=== PATIENT | female | born 1940 | race Caucasian/White ===

== ENCOUNTER 2020-12-25 22:12 | Inpatient (IN) | payer MEDICARE, MEDICAID, SELFPAY ==
[2020-12-25 22:22] VITALS: PULSE 81
[2020-12-25 22:32] VITALS: BP 136/79; PULSE 90; RESP 17; TEMP 36.6; O2SAT 92
[2020-12-25 22:39] LABS: Glucose Point of Care 173 mg/dL (70-110)
--- NOTE | 2020-12-25 23:21 | P.HP_ITS ---
Providers/Chief Complaint Admitting Physician: Thomas Robertson MD Chief Complaint: HYPOTENSION, AMS, UNWITNESSED FALL History of Present Illness Cathy Martinez is a 80 year old female who is a resident of [facility] has history of congestive heart failure atrial flutter takes Eliquis, presented to [facility] for chief complaint of recent fall and facial droop. She was sent to the hospital because she sustained a fall at the halfway today, facial droop was noticed and she was confused. She does carry history of Alzheimer's dementia. From [facility] she was transferred to our facility for chief complaint of hypotension however her blood pressure improved after 1 L normal saline that was given in the ER. Her NIH was 0 her symptoms resolved. Work-up at the other facility revealed normal CBC, BMP revealed hypokalemia high CRP and pro calcitonin otherwise normal digoxin level, troponin normal, D-dimer normal, EKG showing atrial flutter without ischemic or infarctive changes, chest x-ray revealed mild pulmonary vascular ingestion BMP 2400, she was given Zosyn and 1 L normal saline and transferred to our facility because of hypotension. By the time she arrived at [facility], she was awake, alert oriented to herself, nobody provide any history, I called halfway to get the report, the night nurse is able to tell me that today she was walking on the [place] when all of a sudden she fell on the ground she is not sure whether she lost consciousness, at that time her blood pressure was normal, she was confused more than her baseline, facial droop was noticed for concern of stroke she was sent to [facility]. Her current blood pressure systolic 97 mmHg. Review of records revealed coronavirus strain OC43. Review of Systems Const: Denies: fever(s) Eyes: Denies: change in vision ENMT: Denies: throat pain Card: Denies: chest pain Resp: Denies: dyspnea GI: Denies: abdominal pain : Denies: flank pain Musc: Denies: neck pain Skin/Breast: Denies: rash Neuro: Denies: headache(s) Psych: Denies: anxiety Endo: Denies: polyuria Abhi/Lymph: Denies: easy bruising All/Imm: Denies: urticaria Medications/Allergies Home Medications Medication Instructions Recorded Confirmed Last Taken Type acetaminophen [Tylenol] 650 mg PO Q4H PRN 12/25/20 12/25/20 Unknown History albuterol sulfate INHALATION Q4H PRN 12/25/20 Unknown History alum-mag hydroxide-simeth [Mylanta] 30 ml PO Q2H PRN 12/25/20 12/25/20 Unknown History apixaban [Eliquis] 5 mg PO BID 12/25/20 12/25/20 Unknown History aspirin 81 mg PO BID 12/25/20 12/25/20 Unknown History atorvastatin 40 mg PO BEDTIME 12/25/20 12/25/20 Unknown History bisacodyl 10 mg AR DIRECTED PRN 12/25/20 12/25/20 Unknown History bisacodyl [Ducodyl (bisacodyl)] 20 mg PO DIRECTED PRN 12/25/20 12/25/20 Unknown History camphor-menthol [Biofreeze] 1 applic TOPICAL BID PRN 12/25/20 12/25/20 Unknown History citalopram [Celexa] 10 mg PO DAILY 12/25/20 12/25/20 Unknown History digoxin 125 mcg PO DAILY 12/25/20 12/25/20 Unknown History doxycycline hyclate 100 mg PO BID 12/25/20 12/25/20 Unknown History ergocalciferol (vitamin D2) 1,250 mcg PO DIRECTED 12/25/20 12/25/20 Unknown History [Vitamin D2] furosemide 40 mg PO BID 12/25/20 12/25/20 Unknown History insulin aspart U-100 [Novolog See Rx Instructions .ROUTE .COMPLEX 12/25/20 12/25/20 Unknown History U-100 Insulin aspart] insulin detemir U-100 [Levemir 8 unit SUBCUT BEDTIME 12/25/20 12/25/20 Unknown History U-100 Insulin] insulin detemir U-100 [Levemir 14 unit SUBCUT QAM 12/25/20 12/25/20 Unknown History U-100 Insulin] loperamide [Imodium] 2 mg PO DIRECTED PRN 12/25/20 12/25/20 Unknown History lorazepam 0.5 mg PO BID 12/25/20 12/25/20 Unknown History losartan [Cozaar] 25 mg PO DAILY 12/25/20 12/25/20 Unknown History magnesium citrate 150 ml PO DIRECTED PRN 12/25/20 12/25/20 Unknown History magnesium hydroxide [Milk of 30 ml PO DIRECTED PRN 12/25/20 12/25/20 Unknown History Magnesia] metoprolol succinate 100 mg PO DAILY 12/25/20 12/25/20 Unknown History multivitamin with minerals 1 tab PO DAILY 12/25/20 12/25/20 Unknown History omega-3 fatty acids [Berkley 3 Fish 1,000 mg PO DAILY 12/25/20 12/25/20 Unknown History Oil Concentrate] sennosides-docusate sodium 2 tab-cap PO BID 12/25/20 12/25/20 Unknown History [Senna-S] sitagliptin [Januvia] 25 mg PO DAILY 12/25/20 12/25/20 Unknown History spironolactone 25 mg PO DAILY 12/25/20 12/25/20 Unknown History Allergies Allergy/AdvReac Type Severity Reaction Status Date / Time Sulfa (Sulfonamide Allergy Unknown Unknown Verified 12/25/20 22:30 Antibiotics) PFSH Acute PFSH: Medical History Acute depression Alzheimer's dementia Atrial flutter CHF (congestive heart failure) COVID-19 SAW (generalized anxiety disorder) HTN (hypertension) Hyperglycemia Surgical History History of appendectomy Family History Other Family history non-contributory Social History Smoking and tobacco status: never smoked Alcohol intake: never Housing: [facility] Vitals/I&O/Wt Last Vital Signs Temp 98 F 12/25/20 22:32 Pulse 90 12/25/20 22:32 Resp 17 12/25/20 22:32 BP 136/79 12/25/20 22:32 Pulse Ox 92 12/25/20 22:32 Weight last 48 hrs Weight 77.02 kg Weight 77.383 kg Physical Exam Narrative: EXAM NARRATIVE: elderly female, pleasant and cooperative during my evaluation however she is only oriented to herself S1, S2 variable, no clinical signs of fluid overload She is laying supine without any shortness of breath saturating well on room air mild crackles left greater than right otherwise no acute respiratory distress stridor or wheezing Abdomen soft nontender bowel sound present Lower extremity no edema gangrene or ulcer Oriented to herself NIH 0 No focal deficit No joint swelling or cellulitis Gait was not tested Clinically looks dry dry mucous membranes, cracked lips A&P Assessment and plan (1) TIA (transient ischemic attack): Status: Acute (2) Hypotension: Status: Acute (3) Hypokalemia: Status: Acute (4) Weakness: Status: Acute Additional A&P Information TIA Symptoms resolved, facial droop was noticed at the halfway CT head unremarkable done at [facility] NIH 0 during my evaluation Check orthostatics however she received 1 L normal saline at [facility] Systolic blood pressure is 97 mmHg Considering use of aspirin and Eliquis I would not add Plavix at this point which will put her at risk of bleeding D-dimer unremarkable, I do believe her symptoms are related to hypotension related to polypharmacy Check echo in the morning, not sure whether her fall was orthostatic versus syncopal event Hypotension High BNP 2400 chest x-ray shows mild vascular congestion, review of records revealed coronavirus strain OC 43 which is the most common cause of common cold, it is not malignant strain, I would keep her on a azithromycin for now, she received Zosyn at the facility, High CRP and procalcitonin detect Keep her in isolation for now I do believe her hypotension is related to polypharmacy she takes Lasix twice a day, losartan, metoprolol succinate 100 mg, I will reduce her dosage to 50 mg a day, spironolactone, Clinically she looks dehydrated with dry mucous membranes and cracked lips we will give her 250 cc bolus systolic blood pressure 97 mmhg Hypokalemia: I will replete her potassium potassium 3.3, check magnesium level PT evaluation in the morning Cardiac diet DVT prophylaxis not indicated due to Eliquis use Full code Attestations Medical Necessity Statement*: Anticipating discharge within 48 hours will need overnight monitoring because of hypotension and recent fall/TIA Time Spent in Patient Care: 30mins Coding Level of Care Code Acute Strategic Planning Analyst for Chg Fwd Diagnoses TIA (transient ischemic attack) G45.9 Hypotension I95.9 Hypokalemia E87.6 Weakness R53.1
[2020-12-25 23:22] VITALS: BP 102/62; BP 112/66; BP 98/71; PULSE 88; PULSE 93
[2020-12-25 23:43] LABS: Glucose Point of Care 153 mg/dL (70-110)
[2020-12-26] VITALS (8 sets, daily range): BP systolic 101–158; BP diastolic 69–80; PULSE 70–96; RESP 16–28; TEMP 36.4–37.9; O2SAT 94–95
--- NOTE | 2020-12-26 00:21 | USR_ITS ---
Arterial ultrasound of the extracerebral carotid and vertebral arteries Clinical indication: TIA Technique: Real-time ultrasound with shafer scale, duplex Doppler, and color flow imaging was performed to evaluate the extracerebral carotid and vertebral arteries. No prior vascular imaging studies are available for correlation at the time of dictation. Findings: Prominent mixed echogenic plaque formation is identified in the carotid arteries bilaterally, along with intimal thickening . There is normal antegrade flow within the vertebral arteries bilaterally. Absence of flow is identified in the visualized right internal carotid artery, consistent with occlusion. MRA can be performed for confirmation, if clinically indicated. The peak systolic velocity in the left internal carotid artery is 97 cm per second. US/CV carotid duplex BI* [id number] Impression: 1. Prominent mixed echogenic plaque formation within the carotid arteries bilaterally, with occlusion of the right internal carotid artery. 2. Normal antegradew flow within the vertebral arteries. The aforementioned findings initiated a critical results communication pathway. An addendum will be issued at the time of clincian notification.
[2020-12-26] MEDS: sodium chloride 0.9% 250 ML IV (01:22)
[2020-12-26] MEDS: potassium chloride ER 20 mEq Tablet 40 MEQ PO (01:24)
--- NOTE | 2020-12-26 05:35 | PC.NURSE ---
05 Attempted to verify last dose of medications, but no answer at [facility] and patient unable to verify medications
--- NOTE | 2020-12-26 05:38 | PC.NURSE ---
0200 Received patient with Gil Catheter. No order to maintain keep Gil, Doyle verified to remove existing Gil. Balloon deflated of 10cc and catheter removed without incidence. Patient tolerated well.
[2020-12-26 06:13] LABS: Basophils # 0.1 10^3/uL (0.0-0.1); Basophils % 1.4 %; Eosinophils % 0.2 %; Hematocrit 39.6 % (37.0-47.0); Hemoglobin 12.8 g/dL (11.5-15.3); Lymphocytes % 35.5 %; Mean Corpuscular HGB Conc 32.3 g/dL (30.0-36.0); Mean Corpuscular Hemoglobin 26.4 pg (28.0-34.0); Mean Corpuscular Volume 81.6 fL (81-99); Mean Platelet Volume 11.4 fL (7.4-10.4); Monocytes # 0.9 10^3/uL (0.2-0.9); Monocytes % 10.5 %; Neutrophils # 4.27 10^3/uL (1.8-7.7); Neutrophils % 50.5 %; Nucleated Red Blood Cells % 0 %; Platelet Count 385 10^3/cmm (130-400); Red Blood Count 4.85 10^6/uL (4.1-5.3); Red Cell Distribution Width 15.1 % (12.1-15.1); White Blood Count 8.5 10^3/uL (4.0-10.0)
[2020-12-26 06:34] LABS: Anion Gap 11.1 (5-19); Blood Urea Nitrogen 12 mg/dL (8-23); Calcium 7.9 mg/dL (8.5-10.5); Carbon Dioxide 22 mmol/L (22-29); Chloride 99 mmol/L (98-107); Glucose 126 mg/dL (65-115); Magnesium 1.8 mg/dL (1.7-2.3); Osmolality Calculated 269 mOsm/kg (285-295); Potassium 3.1 mmol/L (3.5-5.1); Sodium 129 mmol/L (136-145)
[2020-12-26 06:36] LABS: Digoxin 0.8 ng/mL (0.6-1.2); Thyroid Stimulating Hormone 1.84 uIU/mL (0.27-4.20)
[2020-12-26 07:19] LABS: Glucose Point of Care 142 mg/dL (70-110)
[2020-12-26 07:31] LABS: Estmated Average Glucose 160; Hemoglobin A1C 7.2 % (4.0-6.0)
[2020-12-26] MEDS: sennosides-docusate Tablet 2 TAB PO ×2 (08:06→17:00)
[2020-12-26] MEDS: aspirin 81 mg EC Tablet PO (08:06)
[2020-12-26] MEDS: apixaban 5 mg Tablet PO ×2 (08:06→17:00)
[2020-12-26] MEDS: azithromycin 250 mg Tablet 500 MG PO (08:06)
[2020-12-26] MEDS: metoprolol succinate ER (24 HR) 100 mg Tablet 50 MG PO (08:06)
[2020-12-26] MEDS: spironolactone 25 mg Tablet PO (08:07)
[2020-12-26] MEDS: cefTRIAXone 1,000 MG in sodium chloride 0.9% (plus) 50 ML 100 MG IV (10:15)
[2020-12-26 11:21] LABS: Glucose Point of Care 117 mg/dL (70-110)
--- NOTE | 2020-12-26 11:44 | CTR_ITS ---
PROCEDURE INFORMATION: Exam: CT Angiography Head With Contrast, Arteriography Exam date and time: 12/26/2020 11:45 AM Age: 80 years old Clinical indication: Abnormal findings; Abnormal carotid US; Patient HX: Erika occlusion noted on carotid ultrasound. ; Additional info: Right internal carotid occlusion TECHNIQUE: Imaging protocol: Computed tomography angiography of the head with contrast. Exam focused on the arteries. 3D rendering (Not supervised by radiologist): MIP and/or 3D reconstructed images were created by the technologist. Radiation optimization: All CT scans at this facility use at least one of these dose optimization techniques: automated exposure control; mA and/or kV adjustment per patient size (includes targeted exams where dose is matched to clinical indication); or iterative reconstruction. Contrast material: OMNI 350; Contrast volume: 95 ml; Contrast route: INTRAVENOUS (IV); COMPARISON: 1. CT head wo con* [id number] 12/25/2020 3:59 PM 2. US CV carotid duplex BI* [id number] 12/26/2020 9:40:48 AM RADIATION DOSE METRICS: Total DLP (mGy-cm): 3396.81 FINDINGS: ANTERIOR CIRCULATION: Right internal carotid artery: Atherosclerotic calcifications are seen involving the right cavernous internal carotid artery. There is occlusion of the right internal carotid artery within the neck and carotid canal. Collateral flow is noted in the right cavernous carotid artery. Severe calcification of the cavernous carotid artery is noted. There is severe stenosis involving the right paraclinoid ICA and proximal right supraclinoid ICA. Flow is noted in the carotid terminus. Right middle cerebral artery: The right middle cerebral artery is patent but diminutive in size. 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 The remaining right anterior cerebral artery is patent. Left internal carotid artery: Atherosclerotic calcifications are seen involving the left cavernous internal carotid artery. Atherosclerotic calcifications are seen involving the left cavernous internal carotid artery. Moderate stenosis of the cavernous segment is present. There is moderate/severe stenosis of the proximal left supraclinoid ICA. Left middle cerebral artery: Unremarkable. No occlusion or significant stenosis. No aneurysm. Left anterior cerebral artery: Unremarkable. No occlusion or significant stenosis. No aneurysm. POSTERIOR CIRCULATION: Right vertebral artery: There 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 Left vertebral artery: There is severe stenosis of the distal left vertebral artery. Basilar artery: Mild multifocal stenosis of the basilar artery is present. Right posterior cerebral artery: There is moderate stenosis of the right posterior cerebral artery (P2 segment). 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 Brain: A chronic left BERRY GROWER territory infarct is present. Chronic infarcts are also noted in the inferior aspect of both inferior basal ganglia. There is no acute intracranial hemorrhage, mass effect, or midline shift. Age-related cerebral and cerebellar volume loss is present. Cerebral ventricles: No ventriculomegaly. Bones/joints: Unremarkable. No acute fracture. Soft tissues: Unremarkable. Paranasal sinuses: Right maxillary sinusitis is present. Mucosal thickening is also noted in the ethmoid and sphenoid sinuses. IMPRESSION: 1. Occluded right internal carotid artery within the neck and carotid canal. Collateral flow is present in the right cavernous carotid and supraclinoid ICA. 2. 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 Chronic findings as discussed above. PROCEDURE INFORMATION: Exam: CT Angiography Neck With Contrast Exam date and time: 12/26/2020 11:45 AM Age: 80 years old Clinical indication: Abnormal findings; Abnormal carotid US; Patient HX: Erika occlusion noted on carotid ultrasound. ; Additional info: Right internal carotid occlusion TECHNIQUE: Imaging protocol: Computed tomography angiography of the neck with contrast. 3D rendering (Not supervised by radiologist): MIP and/or 3D reconstructed images were created by the technologist. Radiation optimization: All CT scans at this facility use at least one of these dose optimization techniques: automated exposure control; mA and/or kV adjustment per patient size (includes targeted exams where dose is matched to clinical indication); or iterative reconstruction. Contrast material: OMNI 350; Contrast volume: 95 ml; Contrast route: INTRAVENOUS (IV); COMPARISON: 1. CT head wo con* [id number] 12/25/2020 3:59 PM 2. US CV carotid duplex BI* [id number] 12/26/2020 9:40:48 AM RADIATION DOSE METRICS: Total DLP (mGy-cm): 3396.81 FINDINGS: Right common carotid artery: There is mild stenosis of the mid and distal right common carotid artery. Right internal carotid artery: Atherosclerotic calcifications are present at the right carotid bifurcation and within the proximal right internal carotid artery. 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 There is a tiny accessory artery arising from the origin of the right external carotid artery which ascends in the neck, adjacent to the occluded right internal carotid artery, entering into the carotid canal. Right external carotid artery: No occlusion or stenosis of the origin. Left common carotid artery: No stenosis. No dissection or occlusion. Left internal carotid artery: Atherosclerotic calcifications are present at the left carotid bifurcation and within the proximal left internal carotid artery. Less than 25% stenosis is present. Left external carotid artery: No occlusion or stenosis of the origin. Right vertebral artery: There is mild stenosis of the proximal right vertebral artery. Moderate narrowing of the distal right vertebral artery is noted at the C1 and C2 levels. Left vertebral artery: There is moderate stenosis of the left vertebral artery origin. The remaining left vertebral artery is patent. Right subclavian artery: Incidental note is made of an aberrant right subclavian artery. Moderate stenosis of the aberrant right subclavian artery origin is noted. Aorta: Atherosclerotic calcifications are noted within the aortic arch. Lymph nodes: Numerous small non-specific mediastinal lymph nodes are noted. Soft tissues: Normal. No significant soft tissue swelling. Bones/joints: Moderate degenerative changes of the cervical spine are present. Lungs: Mild scarring is noted in the lung apices. CT/CT angio headneck* [id number] IMPRESSION: 1. Occluded right internal carotid artery 2. Chronic findings as discussed above. REFERENCES: NASCET CRITERIA. The degree of internal carotid artery stenosis is based on NASCET criteria. Normal is no stenosis. Mild is less than 50% stenosis. Moderate is 50-69% stenosis. Severe is 70% to 99% stenosis. Total occlusion is no detectable patent lumen. Radiation Dose CTDIVOL = (mGy): DLP = 3396.81~3396.81 (mGy-cm)
--- NOTE | 2020-12-26 11:45 | PC.CHAP ---
Pastoral Care Encounter/Spiritual Assessment Type of Contact [] Declined extractor tender raw stock visit [] Patient/Family/Request visit [] Outpatient visit [] Follow-up visit [] Physician referral [] Code/Alert [] Routine visit [] Staff referral [] Actively dying [] Patient sleeping [] Family support [] [] Out of room [] Palliative care [] [] Receiving care in room [] Pre-surgical visit [] Trauma [] Long length of stay [] ICU visit [] Other: Relational/Emotional Strength [] Patient feels connected with others/family/visitors/staff [] Distress [] Loneliness/isolation [] Abandonment Spirituality of Patient [x] Person of Alexia [x] Attends [employer] of their Alexia [x] Believes in Prayer [] Reads Bible or Confucianist materials [] There are Spiritual issues to be addressed Client Delivery Specialist Interventions [x] Prayer [] Active listening [] Non-anxious presence [] Spiritual/emotional support [] Crisis/trauma care [] Spiritual counseling [] Bereavement support [] Provided bereavement packet [] Provided Bible/devotional materials [] Provided toy/stuffed animal, coloring book to patient or family member [] Provided Communion [] Anointing/[place] [] Salvation [] Completed spiritual assessment [] Other: Impact on Illness or Injury [] Angry [] Fearful [] Anxious [] Often cries [] Exhaustion [] Unable to work [] Unable to attend muslim [] Unable to walk/stand [] Unable to read [] Unable to drive [] Unable to eat/drink [] Unable to sleep [] Unable to be with family [] Patient intubated [] Other: Summary Time spent with patient
--- NOTE | 2020-12-26 12:20 | PM.PN ---
Subjective Subjective: Interval history: This morning patient was examined, she is alert to person, not to place, not to time, she follows all commands, no facial droop, no slurring of her speech, no focal neurologic deficits detected, she has no complaints, she does not know why she is in the hospital, she thinks she is in [facility], I spoke to patient's custodial, and they advised me that she is quite forgetful at times, she is alert to person, not to place, not to time, she does ambulate on her own, she does eat a hard on her own, she does not have any family, is awarded guardianship of the formerly [facility], [facility]1983, she has dementia, according to custodial after breakfast yesterday she got up off the table, and after taking a few steps, she fell to the ground, she did catch a railing that hell broke a fall, no head trauma, but she did slump to the ground, when nursing staff got her up, they noticed right-sided facial droop, which resolved after 3 minutes, she was alert oriented after, following commands, Vitals/I&O/Wt Last Vital Signs Temp 98 F 12/26/20 04:00 Pulse 82 12/26/20 09:45 Resp 20 H 12/26/20 07:44 BP 144/69 12/26/20 09:45 Pulse Ox 95 12/26/20 07:44 12/25/20 12/26/20 12/26/20 22:59 06:59 14:59 Intake Total 550 / 550 290 / 290 Output Total 2200 / 2200 Balance -1650 / -1650 290 / 290 Weight last 48 hrs Weight 76.657 kg Weight 77.02 kg Weight 77.383 kg Physical Exam Const: COMMON NORMALS: no acute distress ORIENTATION/CONSCIOUSNESS: Yes awake, Yes oriented to person and Yes confused; not oriented to place and not oriented to time Resp: COMMON NORMALS: normal respiratory effort, No retractions, No use of accessory muscles and clear to auscultation bilaterally AUSCULTATION: clear to auscultation bilaterally Cardio: COMMON NORMALS: regular rate, S1 normal heart sound present and S2 normal heart sound present RATE: regular rate RHYTHM: abnormal rhythm HEART SOUNDS: S1 normal heart sound present and S2 normal heart sound present GI: COMMON NORMALS: Normal to inspection, nondistended, normoactive bowel sounds present, Soft to palpation and non-tender PALPATION: Yes Soft to palpation Extremity: COMMON NORMALS: no pedal edema Neuro: COMMON NORMALS: CN's II-XII intact bilaterally, moves all extremities and no focal motor deficits SENSORIUM/ORIENTATION: Yes oriented to person, No oriented to place and No oriented to time SPEECH: speech normal Data : 12/26/20 04:45 12/26/20 04:45 A&P Assessment and plan (1) TIA (transient ischemic attack): Status: Acute (2) Hypotension: Status: Acute (3) Hypokalemia: Status: Acute (4) Weakness: Status: Acute Additional A&P Information TIA Symptoms resolved, right facial droop facial droop was noticed at the custodial CT head unremarkable done at [facility] NIH 0 during my evaluation, NIH stroke scale 0 this morning Check orthostatics however she received 1 L normal saline at [facility] Blood pressures were soft at [facility], they are soft early in the morning, but have improved Has been compliant with all medications Carotid artery ultrasound shows right carotid artery stenosis greater than 70%, will order CT angiogram of the head and neck, discussed with neurology Cardiac echo ordered Considering use of aspirin and Eliquis I would not add Plavix at this point which will put her at risk of bleeding D-dimer unremarkable, continue statin Symptoms are related to orthostatic hypotension on top of right carotid artery stenosis resulting in cerebral hypoperfusion Check echo in the morning Continue telemetry monitoring Continue fluids at 75 cc an hour Neurochecks, NIH stroke scales, hold off on orthostats Allow for permissive hypertension Continue metoprolol 50 mg daily, stop Aldactone Hypotension High BNP 2400 chest x-ray shows mild vascular congestion, review of records revealed coronavirus strain OC 43 which is the most common cause of common cold, it is not malignant strain, received broad-spectrum antibiotics at [facility], continue Augmentin Keep her in isolation for now Orthostatic hypotension I do believe her hypotension is related to polypharmacy, dehydration she takes Lasix twice a day, losartan, metoprolol succinate 100 mg, I will reduce her dosage to 50 mg a day, spironolactone, Clinically she looks dehydrated with dry mucous membranes and cracked lips received several fluid boluses, continue fluids at 75 cc an hour Hypokalemia: I will replete her potassium potassium 3.3, check magnesium level PT evaluation in the morning Cardiac diet DVT prophylaxis not indicated due to Eliquis use Full code Attestations Medical Necessity Statement*: Patient requires hospitalization for TIA, right carotid artery stenosis, orthostatic hypotension Coding Level of Care Code Acute Die Maker Apprentice for Fantag Fwd Diagnoses TIA (transient ischemic attack) G45.9 Hypotension I95.9 Hypokalemia E87.6 Weakness R53.1
[2020-12-26] MEDS: sodium chloride 0.9% 1,000 ML 75 ML IV (12:40)
[2020-12-26] MEDS: iohexol 350 mg/mL 100 mL Btl IV (14:11)
[2020-12-26 16:24] LABS: Glucose Point of Care 155 mg/dL (70-110)
[2020-12-26 18:31] LABS: Anion Gap 15.3 (5-19); Blood Urea Nitrogen 11 mg/dL (8-23); Calcium 8.2 mg/dL (8.5-10.5); Carbon Dioxide 20 mmol/L (22-29); Chloride 103 mmol/L (98-107); Glucose 261 mg/dL (65-115); Osmolality Calculated 286 mOsm/kg (285-295); Potassium 4.3 mmol/L (3.5-5.1); Sodium 134 mmol/L (136-145)
--- NOTE | 2020-12-26 18:39 | PC.NURSE ---
Patient has pulled out multiple ivs this shift even though increased observation has been in place call to Dr Robertson patient to be placed on 1:1 observation
[2020-12-26] MEDS: acetaminophen 325 mg Tablet 650 MG PO (20:08)
[2020-12-26] MEDS: atorvastatin 40 mg Tablet PO (20:08)
[2020-12-26 20:19] LABS: Glucose Point of Care 160 mg/dL (70-110)
--- NOTE | 2020-12-26 23:22 | USCV_ITS ---
Cathy Martinez Age: 80 Gender: F : 1940 Exam Date: 12/26/2020 09:26 Ordering Phys: Lonnie Kwon MD Technologist: Mark Archer Exam Location: [facility] – [place] Indication: TIA BP: 101 / 72 HR: 83 Rhythm: Sinus Technical Quality: Adequate MEASUREMENTS (Male / Female) Normal Values 2D ECHO LVOT Diameter 2.0 cm LV Ejection Fraction MOD 2C 69.5 % LV Ejection Fraction 2C AL 70.2 % LA Diameter 3.8 cm LA Width 5.7 cm LA Height 7.3 cm RA Width 4.6 cm RA Height 6.5 cm Aorta at Sinotubular Diameter 2.6 cm DOPPLER AV Peak Velocity 149.0 cm/s LVOT Peak Velocity 68.0 cm/s AV Area Cont Eq vti 1.4 cm squared AV Area Cont Eq pk 1.4 cm squared MV Area PHT 5.0 cm squared Mitral E to A Ratio 3.9 MV E' Velocity 75.0 cm/s Mitral E to MV E' Ratio 8.3 Mitral E to LV E' Lateral Ratio 8.6 Mitral E to LV E' Septal Ratio 8.0 TR Peak Velocity 280.0 cm/s TR Peak Gradient 31.4 mmHg TV Peak E Velocity 93.0 cm/s Right Atrial Pressure 3.0 mmHg Pulmonary Artery Systolic Pressu 34.4 mmHg PV Peak Velocity 89.0 cm/s FINDINGS Left Ventricle Normal left ventricular size. LV systolic function is normal with EF of 55-60%. No regional wall motion abnormalities. Diastolic function is indeterminate because of atrial fibrillation Right Ventricle The right ventricle is normal in size and function. Right Atrium The right atrium is dilated Left Atrium The left atrium is severely dilated Mitral Valve Mild mitral annular calcification is seen without significant stenosis or prolapse. There is mild to moderate mitral regurgitation. Aortic Valve Structurally normal aortic valve without significant sclerosis or stenosis. There is no aortic regurgitation. Tricuspid Valve Structurally normal tricuspid valve without significant stenosis. Mild tricuspid regurgitation is noted Pulmonic Valve Structurally normal pulmonic valve without significant stenosis. There is no pulmonic regurgitation. Pericardium Normal pericardium without effusion. Aorta Normal ascending aorta dimension. CONCLUSIONS LV systolic function is normal with EF of 55-60% Diastolic function is indeterminate because of atrial fibrillation Severely dilated Left atrium Mild to moderate mitral regurgitation Mild tricuspid regurgitation No comparison studies are available Nickolas Gifford MD (Electronically Signed) Final Date: 26 Dec 2020 18:12 S
[2020-12-27] VITALS: BP 90/60; PULSE 102; RESP 16; TEMP 36.7; O2SAT 96
[2020-12-27 04:45] VITALS: BP 102/74; PULSE 110; RESP 14; TEMP 36.7; O2SAT 96
[2020-12-27 05:07] LABS: Basophils # 0.1 10^3/uL (0.0-0.1); Basophils % 0.9 %; Eosinophils # 0.1 10^3/uL (0.0-0.8); Eosinophils % 0.6 %; Hematocrit 40.6 % (37.0-47.0); Lymphocytes % 27.8 %; Mean Corpuscular Hemoglobin 26.6 pg (28.0-34.0); Mean Corpuscular Volume 83.2 fL (81-99); Mean Platelet Volume 11.2 fL (7.4-10.4); Monocytes % 9.2 %; Neutrophils # 6.53 10^3/uL (1.8-7.7); Nucleated Red Blood Cells % 0 %; Platelet Count 352 10^3/cmm (130-400); Red Blood Count 4.88 10^6/uL (4.1-5.3); Red Cell Distribution Width 15.5 % (12.1-15.1); White Blood Count 10.9 10^3/uL (4.0-10.0)
[2020-12-27] MEDS: acetaminophen 325 mg Tablet 650 MG PO ×2 (05:29→16:41)
[2020-12-27] MEDS: sodium chloride 0.9% 1,000 ML 75 ML IV (05:30)
[2020-12-27 05:59] LABS: Alanine Aminotransferase 22 U/L (0-33); Albumin Level 3.1 g/dL (3.5-5.2); Alkaline Phosphatase 99 IU/L (35-105); Anion Gap 15.5 (5-19); Aspartate Amino Transferase 20 U/L (0-32); Blood Urea Nitrogen 10 mg/dL (8-23); Calcium 8.5 mg/dL (8.5-10.5); Carbon Dioxide 20 mmol/L (22-29); Chloride 106 mmol/L (98-107); Globulin 3.1 g/dL (1.3-4.6); Glucose 135 mg/dL (65-115); Magnesium 1.9 mg/dL (1.7-2.3); Osmolality Calculated 287 mOsm/kg (285-295); Phosphorus 2.2 mg/dL (2.5-4.5); Potassium 3.5 mmol/L (3.5-5.1); Sodium 138 mmol/L (136-145); Total Bilirubin 1.1 mg/dL (0.15-1.2); Total Protein 6.2 g/dL (6.6-8.7)
[2020-12-27 07:14] LABS: Glucose Point of Care 154 mg/dL (70-110)
[2020-12-27 07:25] VITALS: BP 110/76; PULSE 119; RESP 30; TEMP 36.7; O2SAT 99
[2020-12-27] MEDS: aspirin 81 mg EC Tablet PO (08:05)
[2020-12-27] MEDS: metoprolol succinate ER (24 HR) 100 mg Tablet 50 MG PO (08:05)
[2020-12-27] MEDS: apixaban 5 mg Tablet PO (08:05)
[2020-12-27] MEDS: sennosides-docusate Tablet 2 TAB PO (08:05)
[2020-12-27] MEDS: azithromycin 250 mg Tablet 500 MG PO (08:05)
[2020-12-27] MEDS: cefTRIAXone 1,000 MG in sodium chloride 0.9% (plus) 50 ML 100 MG IV (10:24)
--- NOTE | 2020-12-27 10:26 | PC.CHAP ---
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 [] Patient/Family/Request visit [] Outpatient visit [] Follow-up visit [] Physician referral [] Code/Alert [x] Routine visit [] Staff referral [] Actively dying [x] Patient sleeping [] Family support [] [] Out of room [] Palliative care [] [] Receiving care in room [] Pre-surgical visit [] Trauma [] Long length of stay [] ICU visit [x] Other: sitter Relational/Emotional Strength [] Patient feels connected with others/family/visitors/staff [] Distress [] Loneliness/isolation [] Abandonment Spirituality of Patient [] Person of Alexia [] Attends Latter Day of their Alexia [] Believes in Prayer [] Reads Bible or Synagogue materials [] There are Spiritual issues to be addressed 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 [x] Prayer [] Active listening [] Non-anxious presence [] Spiritual/emotional support [] Crisis/trauma care [] Spiritual counseling [] Bereavement support [] Provided bereavement packet [] Provided Bible/devotional materials [] Provided toy/stuffed animal, coloring book to patient or family member [] Provided Communion [] Anointing/[place] [] Salvation [x] Completed spiritual assessment [] Other: Impact on Illness or Injury [] Angry [] Fearful [] Anxious [] Often cries [] Exhaustion [] Unable to work [] Unable to attend jain [] Unable to walk/stand [] Unable to read [] Unable to drive [] Unable to eat/drink [] Unable to sleep [] Unable to be with family [] Patient intubated [] Other: Summary Time spent with patient
[2020-12-27 11:32] VITALS: BP 94/59; PULSE 103; RESP 27; TEMP 36.7; O2SAT 92
[2020-12-27 11:38] LABS: Glucose Point of Care 169 mg/dL (70-110)
--- NOTE | 2020-12-27 11:40 | PM.DCS ---
Discharge Providers Date of Admission: 12/26/20 14:07 Date of Discharge: December 27, 2020 Attending Provider at Admission: Thomas Robertson MD Attending Provider at Discharge: Thomas Robertson MD Diagnoses at Discharge Discharge Diagnosis (1) TIA (transient ischemic attack): Status: Acute (2) Hypotension: Status: Acute (3) Hypokalemia: Status: Acute (4) Weakness: Status: Acute Reason for Visit Reason for Visit: HYPOTENSION, AMS, UNWITNESSED FALL Hospital Course Hospital Course This is a 72-year-old female with a past medical history of atrial fibrillation on Eliquis, metoprolol, digoxin, hypertension on multiple hypertensive medications, hyperlipidemia, insulin-dependent type 2 diabetes mellitus, Alzheimer's dementia, CHF who presents [facility] as a transfer from [facility] due to concerns for TIA low blood pressures According to care home, after breakfast, patient was gotten up and she was ablating back to the room, when she suddenly fell over, she slumped to the ground, but she caught herself on the railing, she did not actually pass out, nursing staff rushed to her, got her up when they noticed a right facial droop that lasted for approximately 15 minutes, immediately after she was doing it completely fine, back to her baseline alert oriented x1, but she was brought to [facility], her CT of the head was negative for a stroke, she had a CT of the neck that did not show any acute fracture, x-ray of her pelvis did not show any hip fractures, her chest x-ray did not flow show focal pneumonia, her UA did not show any evidence of UTI, her electrolytes were within normal limits, no significant troponin elevation, no elevated D-dimer, however her blood pressures were soft, she was given fluids but blood pressures remained soft, no infectious source, she had no complaints, she was given broad-spectrum antibiotics, the concern was for soft blood pressures without any known etiology so she was transferred to [facility] as [facility] did not have an ICU bed available Here at [facility] patient was admitted for TIA, low blood pressures, fall For her fall, she had no pain complaints, she worked with physical therapy For her TIA, her NIH stroke scale at [facility] was 0, here was 0, she is alert oriented x1, follows all commands, CTA of the head and neck did show: Right vertebral artery: There 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 Left vertebral artery: There is severe stenosis of the distal left vertebral artery. Basilar artery: Mild multifocal stenosis of the basilar artery is present. Right posterior cerebral artery: There is moderate stenosis of the right posterior cerebral artery (P2 segment). 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 Chronic infarcts are also noted in the inferior aspect of both inferior basal ganglia. There is no acute intracranial hemorrhage, mass effect, or midline shift. Age-related cerebral and cerebellar volume loss is present. Cerebral ventricles: No ventriculomegaly. Bones/joints: Unremarkable. No acute fracture. Soft tissues: Unremarkable. Paranasal sinuses: Right maxillary sinusitis is present. Mucosal thickening is also noted in the ethmoid and sphenoid sinuses. Right common carotid artery: There is mild stenosis of the mid and distal right common carotid artery. Right internal carotid artery: Atherosclerotic calcifications are present at the right carotid bifurcation and within the proximal right internal carotid artery. 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 There is a tiny accessory artery arising from the origin of the right external carotid artery which ascends in the neck, adjacent to the occluded right internal carotid artery, entering into the carotid canal. Right external carotid artery: No occlusion or stenosis of the origin. Left common carotid artery: No stenosis. No dissection or occlusion. Left internal carotid artery: Atherosclerotic calcifications are present at the left carotid bifurcation and within the proximal left internal carotid artery. Less than 25% stenosis is present. Left external carotid artery: No occlusion or stenosis of the origin. Right vertebral artery: There is mild stenosis of the proximal right vertebral artery. Moderate narrowing of the distal right vertebral artery is noted at the C1 and C2 levels. Left vertebral artery: There is moderate stenosis of the left vertebral artery origin. The remaining left vertebral artery is patent. 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, collateral flow was present in the right cavernous carotids and supraclinoid ICA -This likely will happen was patient experienced orthostatic hypotension when she got up from the breakfast table, that with the right ICA occlusion, resulted in hypoperfusion to the brain resulting in her TIA symptoms, which subsequently resolved -Patient is already on aspirin, Eliquis, statin -Adding Plavix given her fall history carries significant risk of bleeding, after weighing the risks and benefits, I feel that her risk of bleeding outweighs the benefit, we will have her follow-up with neurology as outpatient For her low blood pressures, likely orthostatic hypotension from polypharmacy blood pressure medications -She did receive fluids at [facility], she received fluids here, her blood pressures were about the same -After blood pressure medications including losartan, spironolactone were stopped and her metoprolol dose was reduced her blood pressures improved -Her heart rates were slightly tachycardic into the 118's atrial fibrillation -So I have discharged her on metoprolol 37.5 mg twice daily -senior care is instructed to carefully monitor blood pressures, if blood pressures remain soft or she remains orthostatic then we should stop the metoprolol and possibly switch over to Cardizem, follow up with cardiology Physical Exam Const: COMMON NORMALS: no acute distress ORIENTATION/CONSCIOUSNESS: Yes awake, Yes oriented to person and Yes confused; not oriented to place and not oriented to time Eye: COMMON NORMALS: Equal, round and reactive pupils present and EOMs intact bilaterally PUPIL: Yes Equal, round and reactive pupils present Lymph: LYMPHATIC: no lymphadenopathy noted Resp: COMMON NORMALS: normal respiratory effort, No retractions, No use of accessory muscles and clear to auscultation bilaterally AUSCULTATION: clear to auscultation bilaterally Cardio: COMMON NORMALS: regular rate, regular rhythm, S1 normal heart sound present, S2 normal heart sound present, No gallops present (Cardio), No clicks present (Cardio) and No murmurs present (Cardio) RATE: regular rate RHYTHM: regular rhythm HEART SOUNDS: S1 normal heart sound present and S2 normal heart sound present GI: COMMON NORMALS: Normal to inspection, nondistended, normoactive bowel sounds present, Soft to palpation, non-tender and No hepatosplenomegaly present PALPATION: Yes Soft to palpation and Yes No hepatosplenomegaly present Extremity: COMMON NORMALS: no pedal edema Neuro: COMMON NORMALS: CN's II-XII intact bilaterally, moves all extremities and no focal motor deficits SENSORIUM/ORIENTATION: Yes oriented to person, No oriented to place and No oriented to time Discharge Data Data Completed and Pending: Completed Studies During Hospitalization Category Date Time Status CT angio headneck * [id number] Stat Cat Scan 12/26/20 11:44 Completed CV carotid duplex BI* [id number] Routine Ultrasound 12/26/20 00:21 Completed CV echo complete* [id number] Routine Ultrasound 12/26/20 23:22 Completed Pending at discharge Category Date Time Status Complete Blood Co unt w/Auto AM LABS Lab 12/28/20 04:00 Ordered Complete Blood Co unt w/Auto AM LABS Lab 12/29/20 04:00 Ordered Comprehensive Met abolic Panel AM LA BS Lab 12/28/20 04:00 Ordered Comprehensive Met abolic Panel AM LA BS Lab 12/29/20 04:00 Ordered Magnesium AM LABS Lab 12/28/20 04:00 Ordered Magnesium AM LABS Lab 12/29/20 04:00 Ordered Phosphorus AM LAB S Lab 12/28/20 04:00 Ordered Phosphorus AM LAB S Lab 12/29/20 04:00 Ordered Labs from last 24 hours 12/27/20 12/27/20 12/27/20 11:33 07:01 04:26 WBC RBC Hgb Hct MCV MCH MCHC RDW Plt Count MPV Neut % (Auto) Lymph % (Auto) [place] % (Auto) Eos % (Auto) Baso % (Auto) Neut # (Auto) Lymph # (Auto) [place] # (Auto) Eos # (Auto) Baso # (Auto) Nucleated RBC % (a uto) Nucleated RBCs # Sodium 138 Potassium 3.5 Chloride 106 Carbon Dioxide 20 L Anion Gap 15.5 BUN 10 Creatinine 0.6 GFR Calculation Not Reportable Glucose 135 H POC Glucose 169 H 154 H Calculated Osmolal ity 287 Calcium 8.5 Phosphorus 2.2 L Magnesium 1.9 Total Bilirubin 1.1 AST 20 ALT 22 Alkaline Phosphata se 99 Total Protein 6.2 L Albumin 3.1 L Globulin 3.1 12/27/20 12/26/20 12/26/20 04:26 20:13 17:20 WBC 10.9 H RBC 4.88 Hgb 13.0 Hct 40.6 MCV 83.2 MCH 26.6 L MCHC 32.0 RDW 15.5 H Plt Count 352 MPV 11.2 H Neut % (Auto) 60.0 Lymph % (Auto) 27.8 Traill % (Auto) 9.2 Eos % (Auto) 0.6 Baso % (Auto) 0.9 Neut # (Auto) 6.53 Lymph # (Auto) 3.0 Traill # (Auto) 1.0 H Eos # (Auto) 0.1 Baso # (Auto) 0.1 Nucleated RBC % (a uto) 0 Nucleated RBCs # 0.0 Sodium 134 L Potassium 4.3 Chloride 103 Carbon Dioxide 20 L Anion Gap 15.3 BUN 11 Creatinine 0.8 GFR Calculation Not Reportable Glucose 261 H POC Glucose 160 H Calculated Osmolal ity 286 Calcium 8.2 L Phosphorus Magnesium Total Bilirubin AST ALT Alkaline Phosphata se Total Protein Albumin Globulin 12/26/20 16:00 WBC RBC Hgb Hct MCV MCH MCHC RDW Plt Count MPV Neut % (Auto) Lymph % (Auto) Traill % (Auto) Eos % (Auto) Baso % (Auto) Neut # (Auto) Lymph # (Auto) [place]ill # (Auto) Eos # (Auto) Baso # (Auto) Nucleated RBC % (a uto) Nucleated RBCs # Sodium Potassium Chloride Carbon Dioxide Anion Gap BUN Creatinine GFR Calculation Glucose POC Glucose 155 H Calculated Osmolal ity Calcium Phosphorus Magnesium Total Bilirubin AST ALT Alkaline Phosphata se Total Protein Albumin Globulin Vitals: Last Vital Signs Temp 98.0 F 12/27/20 11:32 Pulse 103 H 12/27/20 11:32 Resp 27 H 12/27/20 11:32 BP 94/59 12/27/20 11:32 Pulse Ox 92 12/27/20 11:32 Discharge Plan Discharge Patient Disposition: Xfer [facility] Condition: Stable Prescriptions: New aspirin 81 mg Tablet,Delayed Release (Dr/Ec) 81 mg PO DAILY 30 Days Qty: 30 RF: 0 Klor-Con 10 10 mEq tablet extended release 10 meq PO BID 30 Days Qty: 60 RF: 0 metoprolol tartrate 37.5 mg tablet 37.5 mg PO BID 30 Days Qty: 60 RF: 0 Augmentin 875-125 mg tablet 1 tab PO BID 5 Days Qty: 10 RF: 0 Continued Levemir U-100 Insulin 100 unit/mL solution 8 unit SUBCUT BEDTIME RF: 0 insulin aspart U-100 [Novolog U-100 Insulin aspart] 100 unit/mL solution See Rx Instructions .ROUTE .COMPLEX RF: 0 multivitamin with minerals Tablet 1 tab PO DAILY RF: 0 omega-3 fatty acids Capsule 1,000 mg PO DAILY RF: 0 ergocalciferol (vitamin D2) [Vitamin D2] 1,250 mcg (50,000 unit) Capsule 1,250 mcg PO DIRECTED RF: 0 citalopram [Celexa] 10 mg Tablet 10 mg PO DAILY RF: 0 Januvia 25 mg tablet 25 mg PO DAILY RF: 0 Eliquis 5 mg tablet 5 mg PO BID RF: 0 sennosides-docusate sodium [Senna-S] 8.6-50 mg Tablet 2 tab-cap PO BID RF: 0 lorazepam 0.5 mg tablet 0.5 mg PO BID RF: 0 atorvastatin 40 mg tablet 40 mg PO BEDTIME RF: 0 magnesium hydroxide [Milk of Magnesia] 400 mg/5 mL Suspension 30 ml PO DIRECTED PRN (Reason: Constipation) RF: 0 bisacodyl 5 mg Tablet,Delayed Release (Dr/Ec) 20 mg PO DIRECTED PRN (Reason: Constipation) RF: 0 bisacodyl 10 mg Suppository 10 mg AK DIRECTED PRN (Reason: Constipation) RF: 0 magnesium citrate Solution 150 ml PO DIRECTED PRN (Reason: Constipation) RF: 0 alum-mag hydroxide-simeth 200-200-20 mg/5 mL Suspension 30 ml PO Q2H PRN (Reason: Indigestion) RF: 0 acetaminophen [Tylenol] 325 mg Tablet 650 mg PO Q4H PRN (Reason: Fever Or Pain) RF: 0 loperamide 2 mg Capsule 2 mg PO DIRECTED PRN (Reason: Loose Stool) RF: 0 camphor-menthol 0.2-3.5 % Gel 1 applic TOPICAL BID PRN (Reason: Pain) RF: 0 albuterol sulfate 2.5 mg /3 mL (0.083 %) solution for nebulization 2.5 mg inhalation Q4H PRN (Reason: Wheezing) RF: 0 Changed furosemide 40 mg tablet 40 mg PO DAILY Qty: 0 RF: 0 Levemir U-100 Insulin 100 unit/mL solution 8 unit SUBCUT QAM Qty: 0 RF: 0 Discontinued digoxin 125 mcg (0.125 mg) tablet 125 mcg PO DAILY RF: 0 metoprolol succinate 100 mg tablet extended release 24 hr 100 mg PO DAILY RF: 0 spironolactone 25 mg tablet 25 mg PO DAILY RF: 0 losartan [Cozaar] 25 mg Tablet 25 mg PO DAILY RF: 0 aspirin 81 mg Tablet 81 mg PO BID RF: 0 doxycycline hyclate 100 mg Tablet 100 mg PO BID RF: 0 Discharge Orders: Discharge Order (Routine); Ordered 12/27/20 Ordered By: Thomas Robertson Referrals: Esme Mccain MD [Physician] - 2 months (tia) Jany Hraris MD [Physician] - 2 weeks (follow up with cardiology in 2 weeks) Discharge Diet: Advance as tolerated Discharge Activity: Increase activity as tolerated Patient Instructions: Metoprolol (By mouth), Potassium Chloride (By mouth), Aspirin (By mouth), Amoxicillin/Clavulanate Potassium (By mouth), Transient Ischemic Attack (DC), Hypokalemia (DC), Hypotension (DC) Activity Restrictions/Additional Instructions: -Please monitor blood pressures carefully -If patient develops low blood pressures consider cutting down metoprolol dose -Monitor for recurrent strokelike symptoms if so go to [facility] Discharge Attestations Time Spent in Discharge Care*: greater than 30 min Quality Metrics Clinical Quality Measures During this hospital stay, did patient experience: None Coding Level of Care Code Acute Chg FW DC note Exam Comprehensive Diagnoses TIA (transient ischemic attack) G45.9 Hypotension I95.9 Hypokalemia E87.6 Weakness R53.1
[2020-12-27 12:31] VITALS: BP 101/75; BP 109/79; BP 114/92; PULSE 105; PULSE 106; PULSE 114
[2020-12-27 14:51] VITALS: BP 117/98; PULSE 110; RESP 18; TEMP 36.4; O2SAT 98
[2020-12-27 16:39] LABS: Glucose Point of Care 162 mg/dL (70-110)
== END 2020-12-27 17:46 | disposition skilled nursing facility (03) | DRG 69 ==
PROVIDERS: Internal Medicine; Admitting Provider Family Medicine; Visit Provider Family Medicine
DX: G45.9 Transient cerebral ischemic attack, unspecified (principal); I11.0 Hypertensive heart disease with heart failure; I50.9 Heart failure, unspecified; I48.91 Unspecified atrial fibrillation; Z79.01 Long term (current) use of anticoagulants; W18.30XA Fall on same level, unspecified, initial encounter; Y92.129 Unspecified place in nursing home as the place of occurrence of the external cause; G30.9 Alzheimer's disease, unspecified; F02.80 Dementia in other diseases classified elsewhere, unspecified severity, without behavioral disturbance, psychotic disturbance, mood disturbance, and anxiety; I95.2 Hypotension due to drugs; T50.915A Adverse effect of multiple unspecified drugs, medicaments and biological substances, initial encounter; E87.6 Hypokalemia; Z86.16 Personal history of COVID-19; F32.9 Major depressive disorder, single episode, unspecified; F41.1 Generalized anxiety disorder; R53.1 Weakness; I65.21 Occlusion and stenosis of right carotid artery; I66.22 Occlusion and stenosis of left posterior cerebral artery; I65.02 Occlusion and stenosis of left vertebral artery; E86.0 Dehydration; E78.5 Hyperlipidemia, unspecified; Z79.4 Long term (current) use of insulin; Z86.73 Personal history of transient ischemic attack (TIA), and cerebral infarction without residual deficits; E11.9 Type 2 diabetes mellitus without complications
CPT/HCPCS: 36415; 36416; 70496; 70498; 80048; 80053; 80162; 82962; 83036; 83735; 84100; 84443; 85025; 85610; 93306; 93880; 96372; 97116; 97161; G0378; G0379; J0696; J1815; J7030; J7050; Q0144; Q9967